=== PATIENT | female | born 1940 | race Caucasian/White ===

== ENCOUNTER → 2018-08-27 | Outpatient (CLI) | payer MEDICARE, OTHER ==
[2018-03-19 15:05] VITALS: BP 123/51
[~2018-08-27] MED LIST: AMLO10TA8 PO; AMLO1TAB15 PO; AMLO5TAB10 PO; ASPI-482 PO; ATOR40TA59 PO; CHOL20002 PO; CLOP75TA PO; Calcium/Vitamin D; INSU100I30 SQ; LOSA100T14 PO; METF500T16 PO; METF500T9 PO; METO-239 PO; MULT1CAP15 PO; NITR0.4T22 SL; OMEP20CA10 PO; PRAV10TA2 PO; PRAV20TA2 PO; ROPI0.5T PO; SITA50TA PO; TICA90TA PO
[2018-08-27 09:16] LABS: ALBUMIN 3.9 g/dL (3.4-5.0); CALCIUM 9.8 mg/dL (8.5-10.1); CREATININE 1.3 mg/dL (0.6-1.0); GFR 39.9; POTASSIUM 3.9 mmol/L (3.5-5.1); TOTAL BILIRUBIN 0.4 mg/dL (0.2-1.0); TOTAL PROTEIN 7.7 g/dL (6.4-8.2)
== END | disposition home or self-care (01) ==
LOC: LAB 08:36
PROVIDERS: ATTEND Internal Medicine Cardiovascular Disease
DX: I25.10 Atherosclerotic heart disease of native coronary artery without angina pectoris (principal)
CPT/HCPCS: 36415; 80053

== ENCOUNTER → 2018-08-29 | Outpatient (CLI) | payer MEDICARE ==
[2018-03-19 15:05] VITALS: BP 123/51
--- NOTE | 2018-08-29 09:50 | CARD ---
MR#: [id number] Date of Study: 08/29/2018 Ordering Physician: BECCA ANAYA, Referring Physician: BECCA ANAYA, Tech: Soraya Wesley [facility] APPROVED REPORT EXAM: Two-dimensional and M-mode echocardiogram with Doppler and color Doppler. Other Information Quality : GoodHR: 60bpm Rhythm : NSR INDICATION CAD 2D DIMENSIONS RVDd3.3 (2.9-3.5cm)Left Atrium(2D)3.4 (1.6-4.0cm) IVSd1.0 (0.7-1.1cm)Aortic Root(2D)2.7 (2.0-3.7cm) LVDd4.0 (3.9-5.9cm)LVOT Diameter1.8 (1.8-2.4cm) PWd1.0 (0.7-1.1cm)LVDs2.5 (2.5-4.0cm) FS (%) 37.4 %SV48.9 ml LVEF(%)68.0 (>50%) Aortic Valve AoV Peak Mitchell.162.7cm/sAoV VTI35.4cm AO Peak GR.10.6mmHgLVOT Peak Mitchell.114.7cm/s AO Mean GR.5mmHgAVA (VMAX)1.73cm2 BALTAZAR (VTI)1.80yq0HM P 1/2 Poqa659bg Mitral Valve MV E Kswihzca88.8cm/sMV DECEL OJNP862uy MV A Hmzcwhqy384.1cm/sE/A Ratio0.8 MV A Uxlzcvqv762lq Pulmonary Valve PV Peak Trwtiorx120.3cm/s Tricuspid Valve TR P. Snwggdes986vu/sRAP AYSPJCLU0bdKw TR Peak Gr.43fcYxSQMT27rkBl LEFT VENTRICLE The left ventricle is normal size. There is normal left ventricular wall thickness. The left ventricu lar systolic function is normal. The Ejection Fraction is 65-70%. There is normal LV segmental wall m otion. Transmitral Doppler flow pattern is Grade I-abnormal relaxation pattern. RIGHT VENTRICLE The right ventricle is normal size. There is normal right ventricular wall thickness. The right ventr icular systolic function is normal. ATRIA The left atrium size is normal. The right atrium size is normal. The interatrial septum is intact wit h no evidence for an atrial septal defect or patent foramen ovale as noted on 2-D or Doppler imaging. AORTIC VALVE The aortic valve is thickened but opens well. The aortic valve is trileaflet. Doppler and Color Flow revealed mild aortic regurgitation. There is no significant aortic valvular stenosis. There is no aor tic valvular vegetation. MITRAL VALVE The mitral valve is thickened but opens well. There is no evidence of mitral valve prolapse. There is no mitral valve stenosis. Doppler and Color-flow revealed trace to mild mitral regurgitation. TRICUSPID VALVE The tricuspid valve is normal in structure and function. Doppler and Color Flow revealed trace tricus pid regurgitation. There is mild pulmonary hypertension. The PA pressure was estimated at 33 mmHg. Th ere is no tricuspid valve prolapse or vegetation. There is no tricuspid valve stenosis. PULMONIC VALVE The pulmonary valve is normal in structure and function. Doppler and Color Flow revealed trace pulmon ic valvular regurgitation. There is no pulmonic valvular stenosis. GREAT VESSELS The aortic root is normal in size. The ascending aorta is normal in size. The aortic arch appears mil dly dilated. The IVC is normal in size and collapses >50% with inspiration. PERICARDIAL EFFUSION There is no evidence of significant pericardial effusion. Critical Notification Critical Value: No <Conclusion> The left ventricular systolic function is normal. The Ejection Fraction is 65-70%. There is normal LV segmental wall motion. Transmitral Doppler flow pattern is Grade I-abnormal relaxation pattern. Mild aortic regurgitation. Trace to mild mitral regurgitation. Trace tricuspid regurgitation. The PA pressure was estimated at 33 mmHg. There is no evidence of significant pericardial effusion. Signed by : Siva Stephen, Electronically Approved : 08/29/2018 09:50:00
--- NOTE | 2018-08-29 15:04 | RAD ---
MR#: [id number] Date of Study: 08/29/2018 Ordering Physician: BECCA ANAYA, Referring Physician: BECCA ANAYA, Tech: Sultana Rizoz RDMS, RVT APPROVED REPORT Patient Location: OUT-PATIENT Laterality:Bilateral Indications CAD Risk Factors Diabetes Doppler Spectral Velocity Analysis Right Left pCCA 73/13 cm/spCCA 56/10 cm/s mCCA 60/13 cm/smCCA 54/14 cm/s dCCA 60/16 cm/sdCCA 54/13 cm/s Bulb 36/10 cm/sBulb 43/12 cm/s ECA 87/14 cm/sECA 73/9 cm/s pICA 45/13 cm/spICA 43/12 cm/s Holland 54/13 cm/smICA 59/18 cm/s dICA 60/18 cm/sdICA 58/20 cm/s Vert. 44/10 cm/sVert. 37/12 cm/s Subcl. 56/14 cm/sSubcl. 48/8 cm/s ICA/CCA 0.82ICA/CCA 1.05 Findings Grayscale images of the bilateral carotid arteries reveals mild intimal hyperplasia without any focal obstructive plaque. There is mild plaque mostly localized to the bilateral carotid bulbs. Spectral waveforms and color Doppler overall reveal 0 to less than 50% stenosis by velocity criteria. Bilateral vertebral velocities are antegrade in nature. Bilateral subclavian velocities are within normal limits. Critical Notification Critical Value: No <Conclusion> No significant bilateral carotid occlusive disease. Signed by : Becca Anaya, Electronically Approved : 08/29/2018 15:03:50
== END | disposition home or self-care (01) ==
LOC: ECHO 08:20
PROVIDERS: ATTEND Internal Medicine Cardiovascular Disease
DX: I65.23 Occlusion and stenosis of bilateral carotid arteries (principal); I35.1 Nonrheumatic aortic (valve) insufficiency; I27.20 Pulmonary hypertension, unspecified; I77.3 Arterial fibromuscular dysplasia; I25.10 Atherosclerotic heart disease of native coronary artery without angina pectoris; I77.819 Aortic ectasia, unspecified site
CPT/HCPCS: 93306; 93880

== ENCOUNTER → 2019-07-17 | Outpatient (CLI) | payer MEDICARE ==
[2018-03-19 15:05] VITALS: BP 123/51
[~2019-07-17] MED LIST changes: +METF500T11 PO; -METF500T9 PO; -OMEP20CA10 PO; +OMEP20CA16 PO
--- NOTE | 2019-07-17 14:29 | KCIC ---
MRI right knee without contrast dated 07/17/2019. No comparison available. CLINICAL INDICATION: Knee pain. TECHNIQUE: Routine multiplanar multisequence MR imaging performed. FINDINGS: Mild tricompartmental hypertrophic change with small marginal osteophytes. Thinning and surface irregularity of the articular cartilage throughout. There is full-thickness cartilage loss at the upper aspect of the lateral patellar facet no definite full-thickness defect of the medial or lateral compartment cartilage. Small joint effusion. Small popliteal cyst. No intra-articular loose body. Anterior cruciate and posterior cruciate ligaments intact. Medial and lateral collateral complexes intact. There is mild increased signal in the substance of the ACL. Iliotibial band, popliteus tendon and pes anserine complex within normal limits. Quadriceps and patellar tendon are intact. No abnormality of the medial or lateral retinaculum. There is focal increased signal of the medial head gastrocnemius at its posterior femoral attachment. There is a focal radial tear at the medial meniscal root. Blunting of the free edge of the posterior horn medial meniscus and medial meniscal body. The medial meniscal body is slightly extruded into the medial gutter. Anterior horn is intact. Lateral meniscus is normal in morphology and signal. IMPRESSION: 1. Focal radial tear at the posterior horn medial meniscus near the meniscal root. There is also free edge degenerative tearing of the medial meniscal body. 2. Mild tricompartmental degenerative arthrosis and chondromalacia. There is full-thickness cartilage loss at the anterior compartment. 3. Moderate size joint effusion and small popliteal cyst. 4. Mild mucoid degeneration of the anterior cruciate ligament. 5. Focal tendinosis and/or intrasubstance partial tearing of the medial head gastrocnemius tendon at its femoral origin. Electronically signed by: González Rees MD (07/17/2019 2:25 PM) [facility]
== END | disposition home or self-care (01) ==
LOC: KCIC MRI 12:58
PROVIDERS: ATTEND Orthopaedic Surgery
DX: M25.561 Pain in right knee (principal)
CPT/HCPCS: 73721

== ENCOUNTER → 2020-01-12 | Outpatient (CLI) | payer MEDICARE ==
[2018-03-19 15:05] VITALS: BP 123/51
[~2020-01-12] MED LIST changes: +METF-658 PO; -METF500T11 PO
--- NOTE | 2020-01-12 09:32 | RAD ---
MR#: [id number] Date of Study: 01/12/2020 Ordering Physician: BECCA ANAYA, Referring Physician: BECCA ANAYA, Tech: Shubham Aguirre MBA, RDMS, RVT, RDCS, RTR APPROVED REPORT Patient Location: OUT-PATIENT Laterality:Bilateral Indications Bruit Doppler Spectral Velocity Analysis Right Left pCCA 66/14 cm/spCCA 68/10 cm/s mCCA 74/15 cm/smCCA 57/10 cm/s dCCA 72/15 cm/sdCCA 76/14 cm/s Bulb 67/11 cm/sBulb 63/12 cm/s ECA 106/ cm/sECA 83/ cm/s pICA 61/17 cm/spICA 72/12 cm/s Holland 76/22 cm/smICA 84/22 cm/s dICA 85/26 cm/sdICA 92/23 cm/s Vert. 44/ cm/sVert. 60/ cm/s Subcl. 82/ cm/sSubcl. 107/ cm/s ICA/CCA 1.15ICA/CCA 1.35 Findings Grayscale images of the bilateral common carotid, external and internal carotid vessels demonstrates mild intimal hyperplasia with mild diffuse atherosclerosis. Normal velocities are noted with normal ICA to CCA ratios. Overall 0 to less than 50% stenosis bilat erally. Antegrade vertebral velocities are noted. Critical Notification Critical Value: No <Conclusion> 1. No significant carotid occlusive disease bilaterally Signed by : Becca Anaya, Electronically Approved : 01/12/2020 09:31:59
== END | disposition home or self-care (01) ==
LOC: US 08:50
PROVIDERS: ATTEND Internal Medicine Cardiovascular Disease
DX: I65.23 Occlusion and stenosis of bilateral carotid arteries (principal); I77.3 Arterial fibromuscular dysplasia; R09.89 Other specified symptoms and signs involving the circulatory and respiratory systems
CPT/HCPCS: 93880

== ENCOUNTER → 2020-01-20 | Outpatient (CLI) | payer MEDICARE, OTHER ==
[2018-03-19 15:05] VITALS: BP 123/51
--- NOTE | 2020-01-22 08:55 | CARD ---
MR#: [id number] Date of Study: 01/20/2020 Ordering Physician: BECCA ANAYA, Referring Physician: BECCA ANAYA, Tech: Emma Archuleta [facility] APPROVED REPORT EXAM: Two-dimensional and M-mode echocardiogram with Doppler and color Doppler. Other Information Quality : Good INDICATION Cardiac Disease: CAD 2D DIMENSIONS RVDd2.8 (2.9-3.5cm)Left Atrium(2D)3.6 (1.6-4.0cm) IVSd1.0 (0.7-1.1cm)Aortic Root(2D)2.5 (2.0-3.7cm) LVDd4.2 (3.9-5.9cm)LVOT Diameter2.0 (1.8-2.4cm) PWd1.0 (0.7-1.1cm)LVDs2.2 (2.5-4.0cm) FS (%) 30.0 %SV61.0 ml LVEF(%)60.0 (>50%) Aortic Valve AoV Peak Mitchell.205.4cm/sAoV VTI40.2cm AO Peak GR.16.9mmHgLVOT Peak Mitchell.148.2cm/s AO Mean GR.7mmHgAVA (VMAX)2.19cm2 BALTAZAR (VTI)2.57qr5TQ P 1/2 Xkfw325ug Mitral Valve MV E Vytwfkvs37.5cm/sMV DECEL FZPC494xe MV A Rpfffiog120.9cm/sE/A Ratio0.6 Tricuspid Valve TR P. Ahjzgcxd905iw/sRAP ABEQYUSL9lpGt TR Peak Gr.70krApHJJE01mgGr Pulmonary Vein S1 Yqhsbvsh85.4cm/sD2 Fgzffnpd62.1cm/s LEFT VENTRICLE The left ventricle is normal size. There is normal left ventricular wall thickness. The left ventricu lar systolic function is normal and the ejection fraction is within normal range. The Ejection Fracti on is 55-60%. There is normal LV segmental wall motion. Transmitral Doppler flow pattern is Grade I-a bnormal relaxation pattern. RIGHT VENTRICLE The right ventricle is normal size. The right ventricular systolic function is normal. ATRIA The left atrium size is normal. The right atrium size is normal. The interatrial septum is intact wit h no evidence for an atrial septal defect or patent foramen ovale as noted on 2-D or Doppler imaging. AORTIC VALVE The aortic valve is mildly thickened but opens well. Doppler and Color Flow revealed mild aortic regu rgitation. There is no significant aortic valvular stenosis. MITRAL VALVE The mitral valve is calcified but opens well. Mitral annular calcification is mild. There is no evide nce of mitral valve prolapse. There is no mitral valve stenosis. Doppler and Color-flow revealed trac e mitral regurgitation. TRICUSPID VALVE The tricuspid valve is normal in structure and function. Doppler and Color Flow revealed trace tricus pid regurgitation. The PA pressure was estimated at 37 mmHg. There is no tricuspid valve stenosis. PULMONIC VALVE The pulmonary valve is normal in structure and function. Doppler and Color Flow revealed trace to mil d pulmonic valvular regurgitation. There is no pulmonic valvular stenosis. GREAT VESSELS The aortic root is normal in size. The ascending aorta is normal in size. The IVC is normal in size a nd collapses >50% with inspiration. PERICARDIAL EFFUSION There is no evidence of significant pericardial effusion. Critical Notification Critical Value: No <Conclusion> The left ventricle is normal size. The left ventricular systolic function is normal and the ejection fraction is within normal range. The Ejection Fraction is 55-60%. Doppler and Color Flow revealed mild aortic regurgitation. There is no significant aortic valvular stenosis. Doppler and Color-flow revealed trace mitral regurgitation. Doppler and Color Flow revealed trace tricuspid regurgitation. The PA pressure was estimated at 37 mmHg. Signed by : Franklin Gonsalez MD Electronically Approved : 01/22/2020 08:54:40
== END | disposition home or self-care (01) ==
LOC: ECHO 15:12
PROVIDERS: ATTEND Internal Medicine Cardiovascular Disease
DX: I08.8 Other rheumatic multiple valve diseases (principal); I25.10 Atherosclerotic heart disease of native coronary artery without angina pectoris
CPT/HCPCS: 93306

== ENCOUNTER → 2021-05-22 | Outpatient (CLI) | payer MEDICARE ==
[2018-03-19 15:05] VITALS: BP 123/51
[~2021-05-22] MED LIST changes: +AMLO-186 PO; +AMLO-187 PO; -AMLO10TA8 PO; -AMLO5TAB10 PO
--- NOTE | 2021-05-22 14:29 | KCIC ---
EXAM: Lumbar spine MRI without contrast. HISTORY: Acute pain. TECHNIQUE: Multiplanar, multisequence magnetic resonance imaging of the lumbar spine was performed wi thout contrast. COMPARISON: None. FINDINGS: There is minimal retrolisthesis of L5 on S1. There is a mild chronic inferior endplate depr ession with Schmorl's node at L1. No acute or subacute fracture is seen. There is degenerative endpla te edema with associated disc space narrowing and osteophytosis primarily at L5-S1. There are multipl e endplate Schmorl's nodes. There are few osseous hemangiomas. There is a heterogeneous lesion with i ncreased signal on inversion recovery images within the posterior aspect of T11. The conus terminates at L1. There are tiny benign renal cysts. Follow-up is not routinely performed for simple cysts. At L1-L2, there is a disc bulge and endplate remodeling. There is minimal bilateral foraminal stenosi s. At L2-L3, there is a shallow broad-based posterior central disc protrusion with slight superior and i nferior extrusion superimposed on a disc bulge and endplate remodeling. There is a left foraminal to extra foraminal disc protrusion. There is mild left facet arthropathy. There is mild left foraminal s tenosis. There is mild central canal stenosis. At L3-L4, there is a disc bulge and endplate remodeling. There is no stenosis. At L4-L5, there is a right foraminal to extra foraminal superior disc extrusion. There is also a righ t lateral recess disc protrusion with minimal inferior extrusion. These are superimposed on a disc bu lge and endplate remodeling. There is mild right foraminal stenosis with abutment the exiting right L 4 nerve root. There is narrowing of the right lateral recess and abutment the traversing right L5 ner ve root. At L5-S1, there is a posterior central disc protrusion and there is a left lateral recess to extra fo raminal disc protrusion and osteophyte complex superimposed on a disc bulge and endplate osteophytosi s. There is mild retrolisthesis. There is mild right and moderate left foraminal stenosis with abutme nt the exiting left greater than right L5 nerve roots. IMPRESSION: 1. Mild chronic inferior endplate depression with Schmorl's node at L1. No convincing acute fracture is seen. 2. Multilevel degenerative change involving the lumbar spine, described in detail above. This results in minimal bilateral foraminal stenosis at L1-L2, mild left foraminal and central canal stenosis at L2-L3, mild right foraminal stenosis with abutment the exiting right L4 nerve root and narrowing of t he right lateral recess with abutment the traversing right L5 nerve root at L4-L5, and mild right and moderate left foraminal stenosis with abutment the exiting L5 nerve roots at L5-S1. 3. Heterogeneous lesion with increased signal on inversion recovery images within the posterior aspec t of T12. 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 Electronically signed by: Ana Gongora MD (05/22/2021 2:26 PM) [id number]
--- NOTE | 2021-05-22 14:50 | KCIC ---
EXAM: DUAL ENERGY X-RAY ABSORPTIOMETRY (DEXA). HISTORY: Postmenopausal screening. FINDINGS: The lowest measured T-score is -1.1 in the left hip, based on a bone mineral density of 0.8 09 g/cm^2. Refer to the worksheets for full detail. No comparison examinations are available. IMPRESSION: 1. Low bone mass. Bone mineral density yields a T-score between -1.0 and -2.5. Fracture risk is incre ased. 2. FRAX report: Not calculated. METHODOLOGY: Dual energy x-ray absorptiometry was performed to measure bone mineral density. The foll owing analysis is based on the 2019 Official Positions of the International Society for Clinical Dens itometry: Measurements of the hips and the average of L1-L4 are preferred. When the spine and/or hip cannot be feasibly measured or interpreted, or in the setting of hyperparathyroidism, distal radial bone minera l density may be measured. The lumbar spine T-score is based on the average bone mineral density of L1-L4. In the setting of art ifact or anatomic abnormality, some lumbar levels may be excluded, and the remaining levels used for calculation. A single lumbar level is not used for diagnosis, and if only a single level is available for assessment, another anatomic site will be used to assign a diagnosis. The hip T-score is based on the bone mineral density measurement of the femoral neck or total proxima l femur of either side, whichever is lowest. Bilateral mean values are not used for diagnosis. The forearm T-score is derived from 33% of the distal radius of the nondominant forearm. Electronically signed by: Ana Gongora MD (05/22/2021 2:48 PM) [id number]
== END ==
LOC: KCIC MRI 12:47
PROVIDERS: ATTEND Nurse Practitioner Family
DX: M47.816 Spondylosis without myelopathy or radiculopathy, lumbar region (principal); M85.89 Other specified disorders of bone density and structure, multiple sites; N28.1 Cyst of kidney, acquired; M48.07 Spinal stenosis, lumbosacral region; M43.17 Spondylolisthesis, lumbosacral region; M51.27 Other intervertebral disc displacement, lumbosacral region; M51.46 Schmorl's nodes, lumbar region; M25.78 Osteophyte, vertebrae; Z78.0 Asymptomatic menopausal state
CPT/HCPCS: 72148; 77080

== ENCOUNTER → 2021-08-29 | Outpatient (CLI) | payer MEDICARE ==
[2018-03-19 15:05] VITALS: BP 123/51
--- NOTE | 2021-08-29 16:57 | RAD ---
MR#: [id number] Date of Study: 08/29/2021 Ordering Physician: BECCA AGRAWAL, Referring Physician: KARTIK BARRIOS Tech: RADHA Ovalles, ARRChaitanya (R) (N) APPROVED REPORT Test Type: Exercise Stress Nurse/Tech: LATRICIA HUMPHREY Test Indications: CAD Cardiac History: CAD, HTN, PTCA- SEE EMR Medications: SEE EMR Medical History: SEE EMR Resting ECG: SR Resting Heart Rate: 73 bpm Resting Blood Pressure: 149/64mmHg Pretest Chest Pain: No chest pain Nurse/Tech Notes S1,S2, LUNGS CTA, VSS, DENIED CHEST PAIN OR SHORTNESS OF BREATH. Consent: The procedure was explained to the patient in lay terms. Informed consent was witnessed. Steve eout was entered into [employer]. History and Stress Test performed by FRED Oden Stress Symptoms PT TOLERATED TREADMILL TEST WELL, DENIED ANY SYMPTOMS OF CHEST PAIN OR DIFFICULTY BREATHING. TARGET H EART RATE ACHIEVED. VSS. POST EXERCISE Reason for Termination: Reached target heart rate Target HR: 120 Max HR: 152 bpm 126% of Maximum Predicted HR: 120 bpm Exercise duration: 5:15 min:sec, Stage Exercise capacity: 7.0METs Max Blood Pressure: 170/64mmHg Blood Pressure response to exercise: Normal blood pressure response during stress. Heart Rate response to exercise: WNL Chest Pain: No. Arrhythmia: . OCCASSIONAL PVC/COUPLET NOTED, OTHERWISE NO OTHER SIGNIFICANT CHANGES NOTED FROM BASELI NE EKG. INTERPRETATION Stress EKG Conclusion: No evidence of stress induced EKG changes. Imaging Protocol IMAGE PROTOCOL: Rest Tc-99m/stress Tc-99m 1 day Rest: Stress: Viability: Radiopharm.Tc99m GjucxfvpvWm59d Sestamibi Okqz83vQx 32mCi Img Date 08/29/2021 08/29/2021 Inj-Img Kqyd51ijo. 90min. Rest Admin Site:IV - Left AntecubitalAdministrator:FRED Oden Stress Admin Site: IV - Left AntecubitalAdministrator: FRED Oden STRESS DATA End Diast. Vol.56.0mlLVEDV index BSA36.0ml End Syst. Vol.10.0mlLVESV index BSA6.0ml Myocardial Jysw873.0gEject. Gpzzcipo80.0% Stress Scores Regional WT0.00Summed WT0.00 Regional WM0.00Summed WM1.00 The rest and stress images show normal perfusion, normal contraction and thickening. LV Perf. Quant 17 Seg. SSS0.00 17 Seg. SRS0.00 17 Seg. SDS0.00 Stress Defect Extent (% LAD)0.00Rest Defect Extent (% LAD)9.40Rev. Defect Extent (% LAD)0.00 Stress Defect Extent (% LCX) 0.00Rest Defect Extent (% LCX)0.00Rev. Defect Extent (% LCX)0.00 Stress Defect Extent (% RCA)0.00Rest Defect Extent (% RCA)0.00Rev. Defect Extent (% RCA)0.00 Stress Defect Extent (% SCOTT)0.00Rest Defect Extent (% SCOTT)3.70Rev. Defect Extent (% SCOTT)0.00 Other Information Quality:Good Risk Assessment: Low Risk Conclusion 1. No evidence of EKG changes with stress testing. 2. Normal perfusion at stress/rest. 3. Low risk study. 4. EF > 60%. Signed by : Becca Agrawal, Electronically Approved : 08/29/2021 16:57:20
== END ==
LOC: NM 08:13
PROVIDERS: ATTEND Internal Medicine Cardiovascular Disease
DX: I25.10 Atherosclerotic heart disease of native coronary artery without angina pectoris (principal)
CPT/HCPCS: 78452; 93017; A9500

== ENCOUNTER 2021-09-24 11:54 | Emergency (ER) | payer MEDICARE ==
[~2021-09-24] VITALS: Ht 154.9 cm; Wt 57.8 kg
--- NOTE | 2021-09-24 12:21 | PHYS DOC ---
Past Medical History Past Medical History: Diabetes-Type II, Diverticulosis, High Cholesterol, Hypertension Additional Past Medical Histor: RESTLESS LEG, LEG PAIN WITH CHOLESTEROL MEDS Past Surgical History: Appendectomy, Hysterectomy Additional Past Surgical Histo: BLADDER SUSPENSION, CATARACT LENS REPLACEMENT, STENT PLACED Smoking Status: Never Smoker Alcohol Use: None Drug Use: None General Adult EDM: Chief Complaint: FLU SYMPTOM HPI: HPI: Patient is a 80 year old female who presents with yesterday began feeling very sleepy with a intermittent cough. She got a COVID test today and it came back positive. Patient's daughters told her to come in to be checked. Patient denies shortness of breath, chest pain, abdominal pain, nausea, vomiting, diarrhea, fever, body aches, back pain, urinary symptoms, dizziness, headache, numbness or tingling or focal weakness. She has had [employer] vaccines and a booster. She has a history of AL, hysterectomy, bladder suspension surgery, cataract surgery, cardiac stents, diabetes, hypertension, high cholesterol, diverticulosis, appendectomy, restless leg syndrome. Denies any type of pain at this time. Review of Systems: Review of Systems: Constitutional: Denies fever or chills. [] Eyes: Denies change in visual acuity. [] HENT: Denies nasal congestion or sore throat. [] Respiratory: + Intermittent cough or denies shortness of breath. [] Cardiovascular: Denies chest pain or edema. [] GI: Denies abdominal pain, nausea, vomiting, bloody stools or diarrhea. [] : Denies dysuria. [] Musculoskeletal: Denies back pain or joint pain. [] Integument: Denies rash. [] Neurologic: Denies headache, focal weakness or sensory changes. + Tired [] Endocrine: Denies polyuria or polydipsia. [] Lymphatic: Denies swollen glands. [] Psychiatric: Denies depression or anxiety. [] Heart Score: C/O Chest Pain: No Allergies: Allergies: Allergies Coded Allergies Type Severity Reaction Last Updated Verified No Known Drug Allergies 09/24/21 No Physical Exam: PE: Constitutional: Well developed, well nourished, no acute distress, non-toxic appearance. [] HENT: Normocephalic, atraumatic, bilateral external ears normal, oropharynx moist, no oral exudates, nose normal. [] Eyes: PERRLA, EOMI, conjunctiva normal, no discharge. [] Neck: Normal range of motion, no tenderness, supple, no stridor. [] Cardiovascular:Heart rate regular rhythm, no murmur [] Lungs & Thorax: Bilateral breath sounds clear to auscultation [] Abdomen: Bowel sounds normal, soft, no tenderness, no masses, no pulsatile masses. [] Skin: Warm, dry, no erythema, no rash. [] Back: No tenderness, no CVA tenderness. [] Extremities: No tenderness, no cyanosis, no clubbing, ROM intact, no edema. [] Neurologic: Alert and oriented X 3, normal motor function, normal sensory function, no focal deficits noted. [] Psychologic: Affect normal, judgement normal, mood normal. [] Normal physical exam Current Patient Data: Vital Signs: Vital Signs Date Time Temp Pulse Resp B/P (MAP) Pulse Ox O2 Delivery O2 Flow Rate FiO2 09/24/21 12:01 98.3 70 20 181/76 (111) 100 Room Air 98.3 EKG: EKG: [] Radiology/Procedures: Radiology/Procedures: [] Impression: [facility] [address] [place] [address] IMAGING REPORT Signed PATIENT: JOHN TINOCO ACCOUNT: [id number] : 1940 LOCATION: ER AGE: 80 SEX: F EXAM STATUS: REG ER ORD. PHYSICIAN: UNIQUE ARGUETA APRN REASON: covid +, cough PROCEDURE: PORTABLE CHEST 1V XR CHEST 1V 09/24/2021 12:17 PM INDICATION: Covid positive, cough COMPARISON: 03/17/2018 TECHNIQUE: Portable frontal view of the chest is provided. FINDINGS: The cardiomediastinal silhouette is within normal limits. Lungs are clear. There are no significant pleural effusions. There is no pulmonary vascular congestion. No pneumothorax. No suspicious osseous abnormality. IMPRESSION: There is no acute cardiopulmonary process. Electronically signed by: Xena Prieto MD (09/24/2021 1:08 PM) [facility] DICTATED and SIGNED BY: XENA PRIETO MD DATE: 09/24/21 1308 Course & Med Decision Making: Course & Med Decision Making Pertinent Labs and Imaging studies reviewed. (See chart for details) COVID-19 CRITERIA: The patient was evaluated during the global COVID-19 pandemic, and that diagnosis was suspected/considered upon their initial presentation. Their evaluation, treatment and testing was consistent with current guidelines for patients who present with complaints or symptoms that may be related to COVID-19. See HPI. Alert and oriented x4. Ambulatory steady gait. Speaks in full clear sentences. Vital signs are within normal limits. She is not hypoxic. Skin pink warm and dry. Cap refill less than 2 seconds. Lungs are clear to auscultation all lobes. No respiratory distress. No stridor. Chest x-ray shows no acute findings. Patient continues to have no complaints. I will send her with a ProAir inhaler. I will give her a one-time dose of dexamethasone in the ED. She is to follow-up with her primary care provider tomorrow. [] Bruno Disclaimer: Bruno Disclaimer: This electronic medical record was generated, in whole or in part, using a voice recognition dictation system. Departure Departure Impression: Primary Impression: Cough in adult Disposition: 01 HOME / SELF CARE / HOMELESS Condition: STABLE Referrals: LA NENA STRONG MD (PCP) Patient Instructions: Cough, Adult Additional Instructions: Call your doctor in the morning to let them know that you are positive for COVID. Drink plenty of fluids to stay hydrated. Use Tylenol for any pain or fever. If at any point you have severe shortness of breath, chest pain, diz ziness, severe weakness, uncontrolled diarrhea or vomiting return to the emergency room. Scripts Albuterol Sulfate (PROAIR HFA INHALER) 8.5 Gm Hfa.aer.ad 2 PUFF IH PRN Q4-6HRS PRN for wheezing for 21 Days, #1 INHALER 0 Refills Prov: UNIQUE ARGUETA APRN 09/24/21 UNIQUE ARGUETA APRN Sep 24, 2021 12:21
--- NOTE | 2021-09-24 13:10 | RAD ---
XR CHEST 1V 09/24/2021 12:17 PM INDICATION: Covid positive, cough COMPARISON: 03/17/2018 TECHNIQUE: Portable frontal view of the chest is provided. FINDINGS: The cardiomediastinal silhouette is within normal limits. Lungs are clear. There are no significant pleural effusions. There is no pulmonary vascular congestion. No pneumothora x. No suspicious osseous abnormality. IMPRESSION: There is no acute cardiopulmonary process. Electronically signed by: Mar Islas MD (09/24/2021 1:08 PM) [facility]
[2021-09-24] MEDS ORDERED: ALBU2.5V8 IH (13:16)
[2021-09-24 13:52] VITALS: BP 163/97
[2021-09-24] MEDS: DEXAMETHASONE 4 MG TABLET PO ONE (13:55)
== END 2021-09-24 13:57 | disposition home or self-care (01) ==
LOC: ER 11:54
DX: R05.9 Cough, unspecified (principal); E11.9 Type 2 diabetes mellitus without complications; E78.00 Pure hypercholesterolemia, unspecified; I10 Essential (primary) hypertension; G25.81 Restless legs syndrome
CPT/HCPCS: 71045; 99283